=== PATIENT | male | born 1975 ===

== ENCOUNTER 2018-09-09 22:08 | Emergency (ER) | payer OTHER ==
[~2018-09-09] VITALS: Ht 175.3 cm; Wt 113.4 kg
[2018-09-09] MEDS ORDERED: ALTACE5 MG (22:18)
[2018-09-10] MEDS ORDERED: ZITHROMAX TRI-500 MG PO (03:23)
== END 2018-09-10 03:54 | disposition home or self-care (01) ==
LOC: ER 22:08
DX: J31.2 Chronic pharyngitis (principal); H66.91 Otitis media, unspecified, right ear

== ENCOUNTER 2019-11-03 20:14 | Emergency (ER) | payer OTHER ==
[~2019-11-03] VITALS: Ht 177.8 cm; Wt 111.1 kg
[~2019-11-03 20:14] MED LIST: ALTACE5 MG; ZITHROMAX TRI-500 MG PO
[2019-11-03] MEDS ORDERED: ALTACE10 MG (20:26)
== END 2019-11-03 20:58 | disposition home or self-care (01) ==
LOC: ER 20:14
DX: H60.8X2 Other otitis externa, left ear (principal)

== ENCOUNTER 2020-01-28 23:03 | Emergency (ER) | payer OTHER ==
[~2020-01-28] VITALS: Ht 175.3 cm; Wt 108.9 kg
[~2020-01-28 23:03] MED LIST changes: +ALTACE10 MG
[2020-01-29] MEDS ORDERED: CLOTRIMAZOLE/BE15 GM TOP (00:20)
== END 2020-01-29 00:39 | disposition home or self-care (01) ==
LOC: ER 23:03
DX: S80.872A Other superficial bite, left lower leg, initial encounter (principal); W57.XXXA Bitten or stung by nonvenomous insect and other nonvenomous arthropods, initial encounter; Y93.89 Activity, other specified; Y92.89 Other specified places as the place of occurrence of the external cause; Y99.8 Other external cause status

== ENCOUNTER 2020-03-03 13:18 | Emergency (ER) | payer OTHER ==
[~2020-03-03] VITALS: Ht 175.3 cm; Wt 108.0 kg
[~2020-03-03 13:18] MED LIST changes: +CLOTRIMAZOLE/BE15 GM TOP
== END 2020-03-03 17:40 | disposition home or self-care (01) ==
LOC: ER 13:18
DX: B34.9 Viral infection, unspecified (principal); Z20.828 Contact with and (suspected) exposure to other viral communicable diseases